=== PATIENT | female | born 1970 | race Caucasian/White ===

== ENCOUNTER 2018-11-20 07:29 | Emergency (ER) | payer OTHER ==
[~2018-11-20] VITALS: Wt 80.0 kg
[2018-11-20 07:33] VITALS: BP 148/68; PULSE 68; RESP 18
[2018-11-20] MEDS ORDERED: KETOROLAC 60 MG INJ IM STA (07:50)
[2018-11-20] MEDS ORDERED: DIAZEPAM 5 MG TAB PO ONE (08:00)
[2018-11-20] MEDS ORDERED: MED4DP PO (08:00)
[2018-11-20] MEDS ORDERED: DEXAMETHASONE 10 MG/ML 1 ML INJ IM ONE (08:00)
[2018-11-20] MEDS ORDERED: NAPR-985 PO (08:00)
[2018-11-20] MEDS ORDERED: CYCL10TA7 PO (08:00)
[2018-11-20] MEDS ORDERED: HYDR-4011 PO (08:00)
--- NOTE | 2018-11-20 09:31 | ERD ---
ER Documentation Chief Complaint Chief Complaint BACK PAIN AFTER HEAVY LIFTING HPI 47 yr old female complaining of back pain. Patient denies any recent falls. 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 She denies any numbness or tingling to her legs. Has normal urination bowel movement. No fevers. Has not taken medications for pain. Denies medical problems. NKDA. Surgical history denies. Social history denies ROS All systems reviewed and are negative except as per history of present illness. Medications Home Meds Active Scripts Methylprednisolone* (Medrol* DOSE PACK) 4 Mg/Dose-Pack Tab.ds.pk, 4 MG PO . DIRECTED, #1 PACKET Prov:JENNIFER ZUNIGA PA-C 11/20/18 Cyclobenzaprine Hcl* (Cyclobenzaprine Hcl*) 10 Mg Tablet, 10 MG PO TID, #15 TAB Prov:JENNIFER ZUNIGA PA-C 11/20/18 Naproxen* (Naprosyn*) 500 Mg Tablet, 500 MG PO BID PRN for PAIN AND/OR INFLAMMATION, #30 TAB Prov:JENNIFER ZUNIGA PA-C 11/20/18 Hydrocodone/Acetaminophen (Sasabe 5-325 Tablet) 1 Each Tablet, 1 TAB PO Q6H PRN for PAIN, #7 TAB Prov:JENNIFER ZUNIGA PA-C 11/20/18 Allergies Allergies: Coded Allergies: No Known Allergy (Unverified , 11/20/18) PMhx/Soc Medical and Surgical Hx: pt denies Medical Hx, pt denies Surgical Hx Hx Alcohol Use: No Hx Substance Use: No Hx Tobacco Use: No Smoking Status: Never smoker FmHx Family History: No diabetes, No coronary disease, No other Physical Exam Vitals Vital Signs Date Temp Pulse Resp B/P (MAP) Pulse Ox O2 O2 Flow FiO2 Time Delivery Rate 11/20/18 98.3 68 18 148/68 99 07:33 (94) Physical Exam GENERAL: The patient is well-appearing, well-nourished, in no acute distress CHEST: Clear to auscultation bilaterally. There are no rales, wheezes or rhonchi. HEART: Regular rate and rhythm. No murmurs, clicks, rubs or gallops. ABDOMEN:Soft, nontender and nondistended. Good bowel sounds. No rebound or guarding. No gross peritonitis. No gross organomegaly or masses. BACK: No midline or flank tenderness. Tender to palpation of bilateral paraspinous muscles. No midline tenderness. NEUROLOGIC: Alert and oriented. Cranial nerves II through XII intact. Motor strength in all 4 extremities with 5 out of 5 strength. Sensation grossly intact. Normal speech and gait. Babinski negative. DTR 2+ throughout. SKIN: There is no apparent rash or petechiae. The skin is warm and dry. Results 24 hrs Laboratory Tests Test 11/20/18 08:04 POC Beta HCG, Qualitative NEGATIVE Current Medications Medications Dose Sig/Ojse Angel Start Time Status Last (Trade) Ordered Route PRN Stop Time Admin Dose Reason Admin Diazepam 5 mg ONCE ONCE 11/20/18 DC 11/20/18 (Valium) PO 08:00 08:11 11/20/18 08:01 Ketorolac 60 mg ONCE STAT 11/20/18 DC 11/20/18 Tromethamine IM 07:50 08:12 (Toradol) 11/20/18 07:51 10 mg ONCE ONCE 11/20/18 DC 11/20/18 Dexamethasone IM 08:00 08:12 (Decadron) 11/20/18 08:01 Procedures/MDM ER course: Volume Toradol and Decadron given ED. Patient is not driving. MDM: 87-year-old female presenting with back pain. I have low suspicion for acute fracture dislocation. I have low suspicion for tendon or ligament rupture. I have low suspicion for discitis, epidural abscess or cauda equina. Patient likely has muscular skeletal strain and will be discharged with supportive medications. Patient is told if symptoms change or worsen to return immediately to the ER. All questions answered at Departure Diagnosis: Primary Impression: Back pain Condition: Stable Patient Instructions: Back Pain (Acute Or Chronic) Referrals: [facility] YOU HAVE RECEIVED A MEDICAL SCREENING EXAM AND THE RESULTS INDICATE THAT YOU DO NOT HAVE A CONDITION THAT REQUIRES URGENT TREATMENT IN THE EMERGENCY DEPARTMENT. FURTHER EVALUATION AND TREATMENT OF YOUR CONDITION CAN WAIT UNTIL YOU ARE SEEN IN YOUR DOCTORS OFFICE WITHIN THE NEXT 1-2 DAYS. IT IS YOUR RESPONSIBILITY TO MAKE AN APPOINTMENT FOR FOLOW-UP CARE. IF YOU HAVE A PRIMARY DOCTOR --you should call your primary doctor and schedule an appointment IF YOU DO NOT HAVE A PRIMARY DOCTOR YOU CAN CALL OUR PHYSICIAN REFERRAL HOTLINE AT IF YOU CAN NOT AFFORD TO SEE A PHYSICIAN YOU CAN CHOSE FROM THE FOLLOWING [facility] CL[facility] [id number] [facility] [id number] [facility] [address] [facility] [address] [facility] [address] [facility] [facility]. [address] Additional Instructions: FOLLOW UP WITH YOUR PRIMARY CARE PHYSICIAN TOMORROW.Return to this facility if you are not improving as expected. JENNIFER ZUNIGA PA-C Nov 20, 2018 09:31
== END 2018-11-20 08:26 | disposition home or self-care (01) ==
LOC: FTE 07:29
DX: M54.9 Dorsalgia, unspecified (principal)
CPT/HCPCS: 81025; 96372; J1100; J1885; Z7502; Z7610